=== PATIENT | male | born 1950 | race Caucasian/White ===

== ENCOUNTER 2022-05-10 07:05 | Day surgery (SDC) | payer MEDICARE ==
[~2022-05-10] VITALS: Ht 172.7 cm; Wt 85.7 kg
--- NOTE | 2022-05-10 08:05 | NUR ---
05/10/22 0805 Mustapha Ramon HISTORY, CHART, MEDICATIONS AND ALLERGIES REVIEWED BEFORE START OF PROCEDURE. PATIENT CONFIRMS NPO STATUS AND AGREES WITH SCHEDULED PROCEDURE. 3-LEAD EKG REVIEWED WITH PHYSICIAN PRIOR TO START OF PROCEDURE. MONITOR INTACT WITH CONTINUOUS PULSE OXIMETRY,CAPNOGRAPHY, 3-LEAD EKG, INTERMITTENT BP. SUPPLEMENTAL O2 TO BE TITRATED THROUGHOUT PROCEDURE TO MAINTAIN O2 SATURATION ABOVE 90%. PATIENT DETERMINED TO BE ASA APPROPRIATE FOR PROPOFOL SEDATION PRIOR TO START OF PROCEDURE BY DR. KAUR.
[2022-05-10] MEDS ORDERED: LISI20 PO (08:10)
[2022-05-10] MEDS ORDERED: ATOR40TA PO (08:11)
[2022-05-10] MEDS ORDERED: TAMS.4ER PO (08:11)
[2022-05-10] MEDS ORDERED: POTCHL20ER PO (08:12)
[2022-05-10] MEDS ORDERED: METO50ER PO (08:12)
== END 2022-05-10 23:12 | disposition home or self-care (01) ==
LOC: ORSCMMR 07:05 → ORD 08:00 → ORSCMMR 08:00 → ORD 05-16 08:00
PROVIDERS: Internal Medicine Gastroenterology
PROC: 0DJD8ZZ Inspection of Lower Intestinal Tract, Via Natural or Artificial Opening Endoscopic (ICD-10-PCS; principal; 2022-05-10 08:00)
DX: Z12.11 Encounter for screening for malignant neoplasm of colon (principal); E78.00 Pure hypercholesterolemia, unspecified; I10 Essential (primary) hypertension; Z85.46 Personal history of malignant neoplasm of prostate; Z79.899 Other long term (current) drug therapy
CPT/HCPCS: J2704; J7120